=== PATIENT | female | born 1955 | race Caucasian/White ===

== ENCOUNTER 2018-08-27 09:51 | Outpatient (CLI) | payer BC, SELFPAY | END 2018-08-27 10:11 | PROVIDERS: PCP Family Medicine; Visit Provider Internal Medicine Cardiovascular Disease | DX: I48.0 Paroxysmal atrial fibrillation (principal); R00.1 Bradycardia, unspecified | CPT/HCPCS: 93005; 93010 ==

== ENCOUNTER 2018-08-27 10:30 | Outpatient (CLI) | payer BC, SELFPAY ==
[2018-08-27 11:03] LABS: ALT 20 U/L (12-78); AST 19 U/L (15-37); Albumin 3.7 g/dL (3.4-5.0); Alkaline Phosphatase 85 U/L (46-116); BUN 20 mg/dL (7-18); Bilirubin, Direct 0.13 mg/dL (0.00-0.20); Bilirubin, Total 0.6 mg/dL (0.2-1.0); CREATININE 0.83 mg/dL (0.55-1.02); Calcium 8.6 mg/dL (8.5-10.1); Chloride 104 mmol/L (98-107); Glucose 93 mg/dL (70-100); Potassium 4.2 mmol/L (3.5-5.1); Sodium 140 mmol/L (136-145); Total Protein 7.1 g/dL (6.4-8.2)
== END 2018-08-27 10:50 ==
PROVIDERS: PCP Family Medicine; Visit Provider Internal Medicine Cardiovascular Disease
DX: I48.91 Unspecified atrial fibrillation (principal); I48.92 Unspecified atrial flutter
CPT/HCPCS: 36415; 80048; 80076

== ENCOUNTER 2018-11-30 10:19 | Day surgery (SDC) | payer OTHER, SELFPAY ==
--- NOTE | 2018-11-30 07:11 | W.COLOREPORT ---
Date of service: 11/30/18 Time of Service: 11:17 Colonoscopy Report Date of procedure: 11/30/18 Pre-op diagnosis general: + Cologuard Post-op diagnosis procedure note: other (Colon mass, polyp) Procedure: Colonoscopy with polypectomy and bx of the forceps as well as tattoe of mass Surgeon: Mayela Billings Anesthesia proc note operative: other (General/ ASA 2/Ignacio Correa, TOMMY) Estimated blood loss (mL): 4 Pathology: other (Ascending polyp, sigmoid colon mass bx) Complications: None Disposition: same day Indications: Mrs. Bertrand is a pleasant 62 year old female who had a positive Cologuard test and was seen in the office for a screening colonoscopy. Risks, benefits and complications have been reviewed. Complications include but are not limited to bleeding, pain, perforation, missed small lesion/polyp, sore throat, aspiration and adverse reaction to the medications. Questions were entertained and answered to their satisfaction and they wished to proceed. No guarantees were given or implied. Prep: Miralax/Dulcolax Procedure Start Time: :17 Procedure End Time: 12:10 Retraction Time: 33 minutes Findings: 2-3 cm sigmoid mass, hard and ulcerated <1 cm ascending colon polyp Procedure Description: After informed consent was obtained the patient was taken to the procedure room and placed in a left decubitous position. Monitors were applied and a time out was done. The patients name, date of , procedure, allergies to medications and metal in their body was reviewed. The patient was then sedated. Once sedated and comfortable a rectal exam was done. External exam was normal. Internal exam revealed a normal sphincter tone and no palpable masses. The scope was then introduced and retro-flexed. No internal hemorrhoids, masses or polyps were identified on retroflexion. The scope was then advanced to the cecum with some difficulty due to tortuousity. The TI and appendiceal orifice were identified. The prep was adequate. There was some liquid stool in the right colon which I was able to wash. The scope was then slowly retracted over 33 minutes back into the rectum. Polyps were removed with forceps in the ascending colon. In the sigmoid colon at about 15-18 cm there was a 2-3 cm mass, which was ulcerated and bleeding. I attempted to get a biopsy with a hot snare and the mass was to hard. I then switched to doing a biopsy with forceps. The mass was then tattooed as well. The scope was removed and the patient was woken up and taken back to Same day surgery in stable condition. The patient tolerated the procedure well and there were no immediate complications. Follow up: 2 weeks. I spoke to Dr. Interiano regarding stopping her coumadin as the mass was clearly bleeding prior to doing biopsies. He agreed that we should stop the coumadin for now. I will start her on Aspirin 325 daily to protect her. Labs have been ordered and I will get a CT scan of the chest, abdomen and pelvis done as well this week. Findings discussed at the bedside with rthe patient and her .
--- NOTE | 2018-11-30 07:13 | PDOC.DSDIS_ITS ---
Discharge Plan Disposition Patient Disposition: HOME Condition: Good Discharge Details Reason For Visit: Colonoscopy Attending Provider: Mayela Billings Primary Care Provider: Chadwick Interiano Home Meds and New Rx's Prescriptions: New aspirin 325 mg tablet 325 mg PO DAILY Qty: 30 RF: 0 Continued diphenhydramine-acetaminophen [Tylenol PM Extra Strength] 1 EACH tablet 1 ea PO HS PRNRF: 0 calcium carbonate-vitamin D3 [Calcium 600 + D(3)] 1 EACH tablet 1 ea PO DAILY RF: 0 Restasis 1 EACH dropperette 1 drp Ophthalmic BID PRNRF: 0 epinephrine [EpiPen 2-Mikal] 0.3 MG/0.3 ML auto-injector 0.3 mg IM ONCE Qty: 1 RF: 1 propafenone 150 mg tablet 75 mg PO Q8H RF: 0 Discontinued polyethylene glycol 3350 17 gram/dose powder 238 g PO ONCE Qty: 238 RF: 0 bisacodyl [Dulcolax (bisacodyl)] 5 mg tablet,delayed release (DR/EC) 5 mg PO ONCE Qty: 4 RF: 0 warfarin 4 mg tablet 4 mg PO DAILY Qty: 120 RF: 3 Discharge Instructions Instructions: Colonoscopy (GEN), Colorectal Polyps (GEN) Additional Instructions: Findings: One polyp Mass at 18 cm that is bleeding- this is almost likely to be cancer unfortunately Follow up: 2 weeks in the office Please call if you develop: fevers >101.5 Nausea or Vomiting Abdominal pain that is not transient DAY SURGERY UNIT POST COLONOSCOPY INSTRUCTIONS 1. Because there will be medication in your system for the next 24 hours, you may feel a little sleepy. Your coordination will be affected. Therefore: a. Do not drive or operate dangerous equipment for 24 hours. b. Do not drink alcohol beverages for 24 hours (not even beer). c. Plan to go home and rest for the day. 2. Generally there are no restrictions on your activity after a day or so has gone by, but you may feel a bit fatigued for a few days. 3 After you arrive home you may have a light meal and return to a normal diet as you can tolerate it without feeling sick to your stomach. 4. After surgery, you may feel pain or discomfort. This should be only transient, but if it persists please contact your doctor. 5. If there are any questions regarding the findings of your procedure, please feel free to contact your doctor. 6. If you are unable to contact your doctor with a problem, contact the hospital at [phone]. 7. Continue all your regular medications unless directed otherwise. I understand the above instructions and have no questions. Signature of Patient or Responsible Adult Escort Date/Time Name of Responsible Adult Escort Signature of Nurse Date/Time Stand Alone Forms: Gabby Felipe (DSU) Referrals: Mayela Billings MD [ [facility] STAFF PHYSICIAN] - (2 weeks) Activity:: Activity as Tolerated Diet:: As Tolerated Discharge Orders Discharge Orders: Discharge Order (Routine); Ordered 11/30/18 Ordered By: Mayela Billings DS: Diagnosis Discharge Diagnosis (1) S/P colonoscopy: (2) Mass of colon: Status: Inactive (3) Colorectal polyps:
[2018-11-30 10:35] VITALS: BP 125/1; PULSE 60; RESP 16; TEMP 36.5; O2SAT 97
[2018-11-30 11:03] LABS: INR 1.1 (0.9-1.1); Prothrombin Time 10.7 sec (9.3-11.0)
[2018-11-30] MEDS: Lactated Ringers 1,000 ML 80 ML IV (11:09)
--- NOTE | 2018-11-30 11:43 | BOWEL_PTH ---
PATIENT: Kendy Bertrand LOC: [facility] U#:[id number] AGE/SX: 62/F ROOM: RE11/30/[address]: Mayela Billings MD : [id number] BED: DIS: 11/30/2018 SPEC #: [id number] RECD: 11/30/18 12:58 STATUS: SINDY REQ #: [id number] JIGNA: 11/30/18 11:[address]: Mayela Billings DEPT: Surgical Specimen RECD BY: Carey Matos ENTERED: 11/30/18 12:59 SP TYPE: Bowel OTHR DR: Chadwick Interiano DO Tissues: 1 - BIOPSY BOWEL 2 - BIOPSY BOWEL Procedures: GROSS AND MICRO LEVEL 4 IMMUNOPEROXIDASE STAIN Comments: [id number]
[2018-11-30] MEDS: Endoscopic Tattoo 5 ML SYR IJ (12:06)
[2018-11-30 12:54] VITALS: BP 132/88; PULSE 55; RESP 16; TEMP 36.3; O2SAT 100
[2018-11-30 12:56] LABS: Absolute Basophil Count 0.03 k/cumm (0.0-0.2); Absolute Eosinophil Count 0.17 k/cumm (0.0-0.7); Absolute Lymphocyte Count 1.19 k/cumm (1.2-3.4); Absolute Monocyte Count 0.27 k/cumm (0.11-0.7); Absolute Neutrophil Count 2.92 k/cumm (1.2-6.7); Basophils % 0.7; Eosinophils % 3.7; HCT 40.8 % (36.0-46.0); HGB 13.8 g/dL (12.0-15.5); Mean Corp. HGB Concentration 33.8 g/dL (32.0-36.0); Mean Corpuscular Hemoglobin 31.8 pg (27.0-33.0); Mean Platelet Volume 9.6 fL (8.0-11.0); Monocytes % 5.9; Neutrophils % 63.7; Platelet Count 163 x1000/uL (130-400); RBC 4.34 m/cumm (4.00-5.20); RBC Distribution Width 12.2 % (11.7-14.6); White Blood Cell Count 4.58 k/cumm (4.4-10.8)
[2018-11-30 13:17] LABS: ALT 22 U/L (12-78); AST 20 U/L (15-37); Albumin 3.4 g/dL (3.4-5.0); Alkaline Phosphatase 84 U/L (46-116); Anion Gap 10.1 mmol/L (3-11); BUN 15 mg/dL (7-18); Bilirubin, Total 0.7 mg/dL (0.2-1.0); CO2 26.9 mmol/L (21.0-32.0); Calcium 8.6 mg/dL (8.5-10.1); Chloride 103 mmol/L (98-107); Glucose 79 mg/dL (70-100); Potassium 3.7 mmol/L (3.5-5.1); Sodium 140 mmol/L (136-145); Total Protein 6.7 g/dL (6.4-8.2)
[2018-12-01 10:19] LABS: CEA 1.4 ng/ml
== END 2018-11-30 13:09 | disposition home or self-care (01) ==
LOC: SUR 10:19
PROVIDERS: PCP Family Medicine; Visit Provider Surgery
PROC: 0DJD8ZZ Inspection of Lower Intestinal Tract, Via Natural or Artificial Opening Endoscopic (ICD-10-PCS; CPT 45378; principal; 2018-11-30 11:15)
DX: D12.2 Benign neoplasm of ascending colon (principal); C18.7 Malignant neoplasm of sigmoid colon; Q22.5 Ebstein's anomaly; Z79.01 Long term (current) use of anticoagulants; R19.5 Other fecal abnormalities
CPT/HCPCS: 45380; 45381; 36415; 80053; 88305; 82378; 85025; 85610; 88361

== ENCOUNTER 2018-12-04 02:34 | Outpatient (CLI) | payer OTHER, SELFPAY ==
[2018-12-04] MEDS: Omnipaque 350 MG/ML 50 ML BTL IJ (07:47)
[2018-12-04] MEDS: Omnipaque 350 MG/ML 100 ML BTL IJ (08:57)
[2018-12-04] MEDS: Breeza Beverage 473 ML BTL PO ×2 (09:07→09:09)
--- NOTE | 2018-12-04 09:10 | DI.CT_ITS ---
SYMPTOM/DIAGNOSIS: COLON MASS DETECTED ON COLONOSCOPY, MALIGNANT NEOPLASM, C81.9 CHEST/ABDOMINAL AND PELVIC CT: CT examination of the abdomen and pelvis was performed with a bolus infusion of 100 cc's of Omnipaque 350 and ingestion of dilute barium. The lungs are predominantly clear. There is a 5 mm. in diameter pleural based nodule associated with the minor fissure on the right, probably representing an intrapulmonary lymph node. No pleural effusion. No mediastinal or hilar adenopathy. Tracheobronchial tree appears intact. No evidence of pulmonary embolic disease or other vascular abnormality. No axillary or supraclavicular adenopathy. There is a subcentimeter, low attenuation right hepatic lobe lesion, probably representing a cyst. Spleen is unremarkable in appearance. Pancreas, gallbladder and bile ducts appear normal. Adrenals and kidneys are unremarkable. Abdominal aorta is of normal diameter and no major vascular abnormality is seen. No significant abdominal wall hernia is seen. No abdominal or pelvic adenopathy is seen. Patient reportedly has had colonic mass identified on colonoscopy. There is question of an area of wall thickening of the sigmoid colon, correlation regarding the site of the colonoscopically lesion is requested. Pericolonic fat shows normal attenuation. Appendix is normal. No evidence of diverticulitis or bowel obstruction. No bony lesion identified in the regions surveyed of the chest, abdomen and pelvis. [employer] structures unremarkable for age. CONCLUSION: No evidence of metastatic disease of the chest, abdomen or pelvis in a patient with reported history of colonic mass identified on colonoscopy.
== END 2018-12-04 02:54 ==
PROVIDERS: PCP Family Medicine; Visit Provider Surgery
DX: K63.89 Other specified diseases of intestine (principal)
CPT/HCPCS: 74177; 71260; J3490; Q9967

== ENCOUNTER 2019-02-04 14:20 | Outpatient (REF) | payer OTHER, SELFPAY ==
[2019-02-04 19:00] LABS: Anion Gap 10.3 mmol/L (3-11); BUN 16 mg/dL (7-18); CO2 26.7 mmol/L (21.0-32.0); CREATININE 0.79 mg/dL (0.55-1.02); Calcium 8.4 mg/dL (8.5-10.1); Chloride 102 mmol/L (98-107); Glucose 95 mg/dL (70-100); Potassium 4.2 mmol/L (3.5-5.1); Sodium 139 mmol/L (136-145)
== END 2019-02-04 14:40 ==
LOC: LBN 14:20
PROVIDERS: PCP Family Medicine; Visit Provider Family Medicine
DX: N17.9 Acute kidney failure, unspecified (principal)
CPT/HCPCS: 80048

== ENCOUNTER 2019-08-04 12:14 | Outpatient (CLI) | payer OTHER, SELFPAY ==
[2019-08-05 15:18] LABS: COVID-19 RT-PCR Result Not Detected (NotDetected)
== END 2019-08-04 12:34 ==
PROVIDERS: PCP Family Medicine; Visit Provider Nurse Practitioner
DX: J02.9 Acute pharyngitis, unspecified (principal); R51 Headache; Z20.828 Contact with and (suspected) exposure to other viral communicable diseases
CPT/HCPCS: U0003

== ENCOUNTER 2020-04-05 02:22 | Outpatient (CLI) | payer BC, SELFPAY ==
[2020-04-06 21:51] LABS: COVID-19 RT-PCR UVMMC Result Negative (Negative)
== END 2020-04-05 02:42 ==
PROVIDERS: PCP Family Medicine; Visit Provider Family Medicine
DX: Z11.59 Encounter for screening for other viral diseases (principal)
CPT/HCPCS: U0003

== ENCOUNTER 2021-01-18 11:26 | Outpatient (CLI) | payer BC, SELFPAY ==
--- NOTE | 2021-01-18 11:15 | RT.EKG_ITS ---
APPROVED REPORT Exam: Resting ECG Reason for Exam: palpatations Patient Location: O HR:54 bpm ECG Measurements Heart Rate 54 AXIS NV 130 P 76 QRSd 142 QRS 76 QT 486 T 53 QTc 459 Conclusion Sinus bradycardia...rate< 60 Right bundle branch block...QRSd>120, terminal axis(90,270)
== END 2021-01-18 11:27 | disposition home or self-care (01) ==
LOC: DI.KIM 11:28
PROVIDERS: PCP Family Medicine; Visit Provider Family Medicine
DX: R00.2 Palpitations (principal)
CPT/HCPCS: 93010

== ENCOUNTER 2021-07-27 00:02 | Outpatient (CLI) | payer BC, SELFPAY ==
--- NOTE | 2021-07-27 12:50 | DI.MAMMO_ITS ---
Exam(s) MAMMO SCREENING EXAM: MAMMO SCREENING CLINICAL HISTORY: screening,Z12.39 TECHNIQUE: Bilateral full field digital CC and MLO mammographic images were obtained with 3D tomosyn thesis and utilizing computer aided detection (CAD). COMPARISON: Available for comparison. FINDINGS: Masses/Architectural Distortion: None seen. Microcalcifications: No suspicious pleomorphic-type are seen. Skin Thickening/Nipple Retraction: None. IMPRESSION: 1. No significant interval change with no specific features of malignancy noted. 2. Unless there is more urgent need, screening mammography is recommended, as per [employer] guidelines. BI-RADS Category 1 - Negative Breast Density - Category B - Scattered areas of fibroglandular density Breast density category C or D implies that the patient has dense breast tissue. Dense breast tissue is very common and is not abnormal but dense breast tissue can make it harder to find cancer on a ma mmogram. Also, dense breast tissue may increase their breast cancer risk. This information about the result of the mammogram report was provided to the patient to raise their awareness. Use this report when you speak with the patient about their risks for breast cancer, which includes their family hist ory. At that time, you may recommend for more screening tests (Ultrasound or MRI) as they might be us eful based on their risk. A negative radiographic report should not delay biopsy if a dominant or clinically suspicious mass is present. Up to ten percent of cancers are not identified on mammography. A negative report may reinforce clinical impression. Adenosis and dense breasts may obscure an underlying neoplasm. False positive reports average 6 to 10%. Patient will receive a letter notifying them of these results.
== END 2021-07-27 00:22 ==
PROVIDERS: PCP Family Medicine; Visit Provider Family Medicine
DX: Z12.31 Encounter for screening mammogram for malignant neoplasm of breast (principal)
CPT/HCPCS: 77063; 77067

== ENCOUNTER 2021-08-21 04:55 | Outpatient (CLI) | payer BC, SELFPAY ==
[2021-08-21 12:00] LABS: Source Nasal/Nares
[2021-08-21 13:59] LABS: COVID-19 PCR Negative (Negative)
== END 2021-08-21 04:56 | disposition home or self-care (01) ==
LOC: LBO 04:57
PROVIDERS: PCP Family Medicine; Visit Provider Internal Medicine Clinical Cardiac Electrophysiology
DX: Z20.822 Contact with and (suspected) exposure to COVID-19 (principal); Z01.818 Encounter for other preprocedural examination; I47.1 Supraventricular tachycardia
CPT/HCPCS: 87635

== ENCOUNTER → 2022-01-30 19:13 | Outpatient (CLI) | payer MEDICARE, SELFPAY ==
--- NOTE | 2022-01-30 14:38 | DI.RAD_ITS ---
Exam(s) XR FOOT LT COMPLETE EXAM: XR FOOT LT COMPLETE CLINICAL HISTORY: METATARSALGIA-M77.40, PAIN-M79.673, EDEMA-R60.0. TECHNIQUE: 2D digital imaging was performed. Three views. COMPARISON: CR XR FOOT RT COMPLETE from 01/30/2022 FINDINGS: BONES: No acute fracture is present. No bony destructive lesion is seen. Tiny plantar calcaneal spur. JOINTS: No dislocation present. Mild degenerative changes at the 1st MTP joint. Mild hallux valgus. Deformity and spurring at the base of the 2nd proximal phalanx and head of the 2nd metatarsal. Mild deformity at the distal interphalangeal joint of the 2nd toe. Degenerative changes also noted tarsa l metatarsal joints, 1st through 3rd. SOFT TISSUE: Swelling adjacent to head of 5th metatarsal. No foreign body or abnormal gas collection . IMPRESSION: Degenerative changes. Mild hallux valgus. Soft tissue swelling near head of 5th metatarsal. DATA REPOSITORY: RADIATION DOSE DELIVERED:
--- NOTE | 2022-01-30 14:38 | DI.RAD_ITS ---
Exam(s) XR FOOT RT COMPLETE EXAM: XR FOOT RT COMPLETE CLINICAL HISTORY: METATARSALGIA-M77.40, PAIN-M79.673, EDEMA-R60.0. TECHNIQUE: 2D digital imaging was performed. Three views. COMPARISON: No exams were available for comparison FINDINGS: BONES: No acute fracture is present. No bony destructive lesion is seen. Prior partial resection of the 5th metatarsal head and osteotomy with [address]. Chronic appearing deformity at t he base of the distal phalanx of the 5th toe. Tiny plantar calcaneal spur. JOINTS: No dislocation present. Severe degenerative changes at the 1st MTP joint. Minimal hallux va lgus. Spurring at the 2nd metatarsophalangeal joint. Mild degenerative changes of the tarsal metatars al joints. Spurring posterior talocalcaneal joint. SOFT TISSUE: Normal. IMPRESSION: Severe degenerative changes of the 1st MTP joint. Postsurgical changes of the distal 5th metatarsal. DATA REPOSITORY: RADIATION DOSE DELIVERED:
== END ==
PROVIDERS: PCP Family Medicine; Visit Provider Podiatrist Foot & Ankle Surgery
DX: M77.41 Metatarsalgia, right foot (principal); M77.42 Metatarsalgia, left foot; M79.671 Pain in right foot; M79.672 Pain in left foot; Z98.890 Other specified postprocedural states; M19.071 Primary osteoarthritis, right ankle and foot; M19.072 Primary osteoarthritis, left ankle and foot; M79.89 Other specified soft tissue disorders; M20.12 Hallux valgus (acquired), left foot; R60.0 Localized edema
CPT/HCPCS: 73630

== ENCOUNTER 2022-06-05 04:08 | Outpatient (CLI) | payer MEDICARE, SELFPAY ==
[2022-06-05 16:19] LABS: ALT 16 U/L (14-59); AST 20 U/L (15-37); Albumin 3.8 g/dL (3.4-5.0); Alkaline Phosphatase 93 U/L (46-116); Anion Gap 10.3 mmol/L (3-11); BUN 21 mg/dL (7-18); Bilirubin, Total 0.4 mg/dL (0.2-1.0); CO2 25.7 mmol/L (21.0-32.0); CREATININE 0.7 mg/dL (0.55-1.02); Calculated LDL 114 mg/dL (<100); Chloride 102 mmol/L (98-107); Cholesterol 203 mg/dL (<200); Estimated GFR 95.92 (mL/min/1.73m2); Glucose 147 mg/dL (74-106); HDL Cholesterol 72 mg/dL (40-60); Potassium 3.7 mmol/L (3.5-5.1); Sodium 138 mmol/L (136-145); Total Protein 6.9 g/dL (6.4-8.2); Triglyceride 86 mg/dL (<150)
[2022-06-06 18:49] LABS: CEA 1.3 ng/mL (See Note)
== END 2022-06-05 04:09 | disposition home or self-care (01) ==
PROVIDERS: PCP Family Medicine; Visit Provider Family Medicine
DX: I47.1 Supraventricular tachycardia (principal); C18.7 Malignant neoplasm of sigmoid colon
CPT/HCPCS: 36415; 80053; 80061; 82378

== ENCOUNTER → 2023-02-21 00:46 | Outpatient (CLI) | payer MEDICARE, SELFPAY ==
--- NOTE | 2023-02-21 | DI.CT_ITS ---
Exam(s) CT CHEST/ABD/PEL W EXAM: CT CHEST/ABD/PEL W CLINICAL HISTORY: SIGMOID COLON CA,C18.7,SURVEILLANCE FOR RECURRENCE. TECHNIQUE: Imaging Protocol: Axial computed tomography images with coronal and sagittal reformatted images were created and reviewed CONTRAST MATERIAL: Intravenous: Omnipaque 350 Contrast volume:100 ml Oral: yes / FINDINGS: CHEST: Tracheobronchial tree: Patent where visualized. Pulmonary parenchyma: No consolidation or dominant measurable mass. Incidental calcified granuloma r ight upper lobe. Pleura: No effusion or pneumothorax. Lymph nodes: Within normal limits. Aorta: Thoracic portion non-dilated. Heart: Tricuspid valve prosthesis. The heart is dilated. Coronary artery calcifications present. No pericardial effusion. Bones: Degenerative changes and mild scoliosis.. No lytic or blastic lesions.No compression fracture s. Sternal wires. ABDOMEN and PELVIS: Liver: Normal density. No measurable mass. Gallbladder and biliary tract: No evidence of stones or wall thickening. No biliary dilatation. Pancreas: Normal density, no abnormal calcifications or inflammatory process. Spleen: Normal. Kidneys: Normal size, contour and axis. No radiodense stones or obstructive uropathy. No suspicious m asses seen. Adrenal glands: No masses seen. Aorta: Abdominal portion non-dilated. Mild atherosclerotic changes. Lymph nodes: Within normal limits. Soft tissues: Unremarkable. Bladder: Unremarkable. Bowel: Partial left colectomy. Anastomotic stenosis sigmoid region. No narrowing. No obstruction o r bowel wall thickening. Large quantity of stool from cecum through splenic flexure. No visible ma ss. Peritoneal cavity: No ascites. No focal collection or mesenteric inflammatory response. Bones: Degenerative changes lower lumbar spine. Reproductive organs: Within normal limits. IMPRESSION: No evidence of metastatic disease or other acute abnormality in the chest, abdomen or pelvis.. RADIATION DOSE DELIVERED: Total DLP DATA REPOSITORY: All CT scans at this facility are submitted to the National Radiology Data Registry (NRDR) Dose Index Registry (DIR) with the [employer] (ACR). RADIATION OPTIMIZATION: All CT scans at this facility use at least one of these dose optimization te chniques: automated exposure control; mA and/or kV adjustment per patient size (includes targeted exa ms where dose is matched to clinical indication); or iterative reconstruction.
[2023-02-21] MEDS: Barium Sulfate 2% W/V-Berry Smoothie 450 ML BTL 900 ML PO (08:46)
[2023-02-21 08:52] LABS: CREATININE 0.8 mg/dL (0.55-1.02); Estimated GFR 81.21 (mL/min/1.73m2)
[2023-02-21] MEDS: Omnipaque 350 MG/ML 500 ML BTL-Imaging package 100 ML IJ (10:49)
[2023-02-21] MEDS: Normal Saline - Diluent 50 ML VIAL IJ (10:51)
[2023-02-21 20:44] LABS: CEA 1.1 ng/mL (See Note)
== END ==
PROVIDERS: PCP Family Medicine; Visit Provider Internal Medicine Hematology & Oncology
DX: C18.7 Malignant neoplasm of sigmoid colon (principal)
CPT/HCPCS: 74177; 71260; 82378; 82565

== ENCOUNTER → 2023-07-14 14:23 | Outpatient (BNVA) | payer MEDICARE, SELFPAY | PROVIDERS: PCP Family Medicine; Referring Provider Family Medicine; Visit Provider Surgery | DX: Z12.11 Encounter for screening for malignant neoplasm of colon (principal); C18.9 Malignant neoplasm of colon, unspecified ==

== ENCOUNTER 2023-10-23 01:29 | Outpatient (CLI) | payer MEDICARE, SELFPAY ==
[2023-10-24 19:43] LABS: CEA 1.5 ng/mL (See Note)
== END 2023-10-23 01:30 | disposition home or self-care (01) ==
LOC: LBO 01:29
PROVIDERS: PCP Family Medicine; Visit Provider Internal Medicine Hematology & Oncology
DX: C18.7 Malignant neoplasm of sigmoid colon (principal)
CPT/HCPCS: 36415; 82378

== ENCOUNTER → 2023-11-28 00:12 | Outpatient (CLI) | payer MEDICARE, SELFPAY ==
--- NOTE | 2023-11-28 13:07 | DI.MAMMO_ITS ---
Exam(s) MAMMO SCREENING EXAM: MAMMO SCREENING CLINICAL HISTORY: screening, Z12.39 TECHNIQUE: Mammograms were interpreted according to the usual protocol including computer analysis w [employer] CAD system, tomosynthesis and C-view imaging. COMPARISON: 2015 and 2021 FINDINGS: The breasts are composed of scattered fibroglandular densities, Breast Density category B. No suspicious masses or suspicious microcalcifications are seen. No skin thickening or abnormal axillary lymph nodes are seen. There has been no significant change from prior exams. IMPRESSION: BI-RADS Category 1, Negative mammogram Yearly screening mammography is recommended. Breast Density - Category B, scattered fibroglandular densities. A negative radiographic report should not delay biopsy if a dominant or clinically suspicious mass is present. Up to ten percent of cancers are not identified on mammography. A negative report may reinforce clinical impression. Adenosis and dense breasts may obscure an underlying neoplasm. False positive reports average 6 to 10%. Patient will receive a letter notifying them of these results.
== END ==
PROVIDERS: PCP Family Medicine; Visit Provider Family Medicine
DX: Z12.39 Encounter for other screening for malignant neoplasm of breast (principal); Z12.31 Encounter for screening mammogram for malignant neoplasm of breast
CPT/HCPCS: 77063; 77067

== ENCOUNTER 2024-06-11 00:14 | Outpatient (CLI) | payer MEDICARE, SELFPAY ==
--- NOTE | 2024-06-11 | DI.CT_ITS ---
Exam(s) CT CHEST/ABD/PEL W EXAM: CT CHEST/ABD/PEL W CLINICAL HISTORY: Malignant neoplasm of sigmoid colon, C18.7,Stage IIA colon CA, surveillance. TECHNIQUE: Imaging Protocol: Axial computed tomography images with coronal and sagittal reformatted images were created and reviewed. Computer aided detection (CAD) was utilized. CONTRAST MATERIAL: Intravenous: Omnipaque 350 Contrast volume:75 ml Oral: yes / CT CT CHEST/ABD/PEL W from 02/21/2023 FINDINGS: CHEST: Tracheobronchial tree: Patent. Pulmonary parenchyma: No consolidation or dominant measurable mass. No suspicious pulmonary nodules. Pleura: No effusion or pneumothorax. Mediastinum: Within normal limits. Aorta: Thoracic portion non-dilated. Pulmonary arteries: No visible emboli. Heart: No pericardial effusion. Tricuspid valve prosthesis. Bones: Mild scoliosis. No lytic or blastic lesions.No compression fractures. Sternal wires. Soft tissues: Pacemaker over left pectoral muscle. ABDOMEN and PELVIS: Exam is limited by motion on the upper half of the images, through the levels of the liver and spleen . Liver: Normal density. No measurable mass. Gallbladder and biliary tract: No evidence of stones or wall thickening. No biliary dilatation. Pancreas: Normal density, no abnormal calcifications or inflammatory process. Spleen: Normal. Kidneys: Normal size, contour and axis. No radiodense stones. No obstructive uropathy. No suspicious masses seen. Adrenal glands: No masses seen. Aorta: Abdominal portion non-dilated. Lymph nodes: Within normal limits. Soft tissues: Unremarkable. Bladder: Unremarkable. Bowel: A rectosigmoid anastomosis is again noted. No evidence of stricture. No new or recurrent mas s. Increased quantity of stool noted from cecum through mid descending colon. No obstruction or bow el wall thickening. Peritoneal cavity: No ascites. No focal collection. No mesenteric inflammatory response. No free ai r. Bones: Unremarkable for age. Reproductive organs: Within normal limits. IMPRESSION: No evidence of metastatic disease in the chest, abdomen or pelvis. Increased quantity of stool. Rectosigmoid anastomosis is unremarkable. RADIATION DOSE DELIVERED: Total DLP DATA REPOSITORY: All CT scans at this facility are submitted to the National Radiology Data Registry (NRDR) Dose Index Registry (DIR) with the [employer] (ACR). RADIATION OPTIMIZATION: All CT scans at this facility use at least one of these dose optimization te chniques: automated exposure control; mA and/or kV adjustment per patient size (includes targeted exa ms where dose is matched to clinical indication); or iterative reconstruction.
[2024-06-11] MEDS: Barium Sulfate 2% W/V-Berry Smoothie 450 ML BTL PO (08:23)
[2024-06-11] MEDS: Barium Sulfate 2% W/V-Creamy Vanilla Smoothie 450 ML BTL PO (08:24)
[2024-06-11 08:50] LABS: CREATININE 0.8 mg/dL (0.55-1.02); Estimated GFR 80.71 (mL/min/1.73m2)
[2024-06-11] MEDS: Omnipaque 350 MG/ML 500 ML BTL-Imaging package 75 ML IJ (11:57)
[2024-06-11] MEDS: Normal Saline - Diluent 50 ML VIAL IJ (11:58)
== END 2024-06-11 00:34 ==
LOC: DI 00:14
PROVIDERS: PCP Family Medicine; Visit Provider Internal Medicine Hematology & Oncology
DX: C18.7 Malignant neoplasm of sigmoid colon (principal)
CPT/HCPCS: 74177; 71260; 82565

== ENCOUNTER → 2024-07-01 13:22 | Outpatient (BNVA) | payer MEDICARE, SELFPAY | PROVIDERS: PCP Family Medicine; Referring Provider Family Medicine; Visit Provider Student in an Organized Health Care Education/Training Program | DX: Z12.11 Encounter for screening for malignant neoplasm of colon (principal); Z85.038 Personal history of other malignant neoplasm of large intestine ==

== ENCOUNTER 2024-07-09 06:19 | Day surgery (SDC) | payer MEDICARE, SELFPAY ==
--- NOTE | 2024-07-08 19:14 | W.PM.DSUDISC ---
Date of service: 07/09/24 Discharge Plan Disposition Patient Disposition: Home Condition: Good Discharge Details Reason For Visit: screening colonoscopy Attending Provider: Sumanth Dejesus Primary Care Provider: Chadwick Interiano Home Meds and New Rx's Prescriptions: Continued multivitamin Tablet 1 tab PO DAILY diltiazem HCl 120 mg capsule,extended release 24hr 120 mg PO DAILY diphenhydramine-acetaminophen [Tylenol PM Extra Strength] 25-500 mg tablet 1 tab PO QHS PRN amoxicillin 500 mg capsule 500 mg PO .COMPLEX Patient Comments: only before dental procedures. Rx Instructions: 500 mg orally take 4 capsules by moth 1 hour prior to dental appointment; epinephrine [EpiPen 2-Mikal] 0.3 mg/0.3 mL auto-injector 0.3 mg IM ONCE Qty: 2 1RF Rx Instructions: DX: [facility]ERGY propafenone 225 mg capsule,extended release 12 hr 225 mg PO Q12H Held apixaban 5 mg tablet 5 mg PO BID Hold Instructions: Resume on 07/10/24. Discontinued polyethylene glycol 3350 17 gram/dose powder 238 g PO ONCE Qty: 238 0RF Rx Instructions: take per colonoscopy instructions bisacodyl [Dulcolax (bisacodyl)] 5 mg tablet,delayed release (DR/EC) 5 mg PO ONCE Qty: 4 0RF Rx Instructions: take per colonoscopy instructions Discharge Instructions Additional Instructions: Kendy is very nice meeting you today, and I hope you make a quick recovery from the colonoscopy. Your prep was excellent and I could see everything fine. I was able to visualize the connection in your colon about 20 cm up from your anus. That looks healthy and excellent. A few centimeters beyond this were 2 polyps. These were both quite small and I removed them without any issues. These will be sent off for testing, and once we know the nature of the polyps, we will be able to better inform the timing of your next colonoscopy. As we talked about beforehand, because I removed these polyps today, I prefer you to hold your Eliquis until tomorrow. You can resume it at that point just as you regularly take it. 1. If tolerated, consume a soft, low fiber diet for 1-2 days. 2[address] Do not drive, drink alcohol, operate machinery, make critical decisions, or do activities that require coordination or balance for 24 hours. 3. Because air was put into your colon during the procedure, expelling air from your rectum (passing gas or farting) is normal. 4. You may not have a bowel movement for 1-3 days because of the colonoscopy prep. This is normal. 5. Go directly to the emergency room if you notice any of the following: Develop chills (warm to touch), or if you have a thermometer and your temperature is above 101 Difficulty breathing or difficultly swallowing Persistent vomiting Severe abdominal pain, other than gas cramps Severe chest pain Black, tarry stools Any bleeding ? exceeding one tablespoon 6. Call your physician if the site where your intravenous was started becomes red, swollen, painful, and warm to touch. 7. Your physician has reviewed your pre-procedure medications. Please continue to take those medications as previously ordered. You will be given specific information/education regarding any changes to your medications before leaving. Activity:: Activity as Tolerated Diet:: As Tolerated Discharge Orders Discharge Orders: Discharge Order (Routine); Ordered 07/08/24 Ordered By: Sumanth Dejesus DS: Diagnosis Discharge Diagnosis (1) Encounter for screening colonoscopy: Status: Acute Asessment and Plan: Follow-up on polypectomy results
--- NOTE | 2024-07-08 19:16 | COLE_ITS ---
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 She needs her next surveillance colonoscopy. Prep: Miralax/Dulcolax Procedure Start Time: 07:43 Procedure End Time: 08:02 Retraction Time: 6 Findings: Healthy normal appearing colorectal anastomosis at 20 cm from the anus; 0.25 cm polyps at 25 cm from the anus x 2 Procedure Description: After the induction of monitored anesthetic care, and with the patient in left lateral decubitus position, I began by performing an external anorectal exam.? Perineum and skin were normal, as was the anal verge.? There was no evidence of external hemorrhoids.? Next, I performed a digital rectal exam.? I did not appreciate any abnormal findings.? Next, I advanced a colonoscope into the rectal vault.? I performed retroflexion.? This appeared normal.? Using insufflation, I then advanced the colonoscope beyond the rectal folds and into the sigmoid colon before advancing towards the cecum.? Around 20 cm from the anal verge was a colorectal anastomosis. It appeared widely patent and healthy. I saw no evidence of any pathology here. There was a very short segment rectal stump adjacent to this, which was irrigated clean. This was also normal- appearing. Just a few centimeters beyond the anastomosis, round 25 cm from the anus were 2 polyps. These were both flat and quite small. These were both removed with cold forceps. There was minimal bleeding..? The scope was noted to be in the cecum by identification of the ileocecal valve and appendiceal orifice.? I then began withdrawing the colonoscope using repeated irrigation as necessary for full evaluation of the colonic mucosa. ?Once the scope was withdrawn to the level of the rectum, great care was taken to examine portions of the rectal folds.? Finally, the scope was withdrawn and the patient was brought to the same-day surgery recovery unit as the anesthetic wore off. ?The findings and instructions were shared with the patient prior to discharge. [place] Bowel Prep [place] Bowel Prep Right Colon: 2 Left Colon: 3 Transverse Colon: 3 Total Score: 8
[2024-07-09 06:28] VITALS: BP 127/80; PULSE 81; RESP 18; O2SAT 98
--- NOTE | 2024-07-09 07:00 | W.ANESPRE ---
General Info Date of Service Date Performed: 07/09/24 Height: 5 ft 6 in Weight: 69.3 kg Body Mass Index (BMI): 24.6 Surgical Procedure: Operation Date: 07/09/24 07:35 Proposed Procedure Side Surgeon elif Dejesus MD Meds Allergies and Home Medications Allergies Allergy/AdvReac Type Severity Reaction Status Date / Time prochlorperazine maleate Allergy Severe TARDIVE Verified 07/09/24 06:40 (From Compazine) DYKENESIA venom-wasp Allergy Severe Anaphylaxis Verified 07/09/24 06:40 Quinidine-Quinine Analogues Allergy Unknown Rash, Fever Verified 07/09/24 06:40 (Cincho Sulfa (Sulfonamide Allergy Unknown unknown Verified 07/09/24 06:40 Antibiotics) Home Medication ?Medication ?Instructions ?Recorded apixaban 5 mg tablet 5 mg PO BID 08/30/21 amoxicillin 500 mg capsule 500 mg PO .COMPLEX 06/16/23 diphenhydramine 25 1 tab PO QHS PRN 06/16/23 mg-acetaminophen 500 mg tablet (Tylenol PM Extra Strength) multivitamin 1 tab PO DAILY 07/14/23 epinephrine 0.3 mg/0.3 mL 0.3 mg (0.3 mL) IM ONCE #2 pens 10/10/23 injection, auto-injector (EpiPen 2-Mikal) propafenone 225 mg 225 mg PO Q12H 10/20/23 capsule,extended release 12 hr diltiazem HCl 120 mg capsule,24 120 mg PO DAILY 07/01/24 hr,extended release Current Visit Medications: Current Medications Generic Name Dose Route Start Last Admin Trade Name Freq PRN Reason Stop Dose Admin Ringer's Solution 1,000 mls @ 80 mls/hr 07/09/24 06:00 IV 07/09/24 23:59 [facility] IV Miscellaneous Supplies 1 each 07/09/24 06:00 Iv Access IV 07/09/24 23:59 DIRECTED SANDRA Ondansetron HCl 4 mg 07/08/24 19:16 Ondansetron 4 Mg/2 Ml Vial IVP 08/07/24 19:15 Q4H PRN PRN Nausea / Vomiting Sodium Chloride 0 ml 07/09/24 06:00 Normal Saline Flush 10 Ml Syr IV 07/09/24 23:59 PRN PRN Sodium Chloride 0 ml 07/09/24 06:00 Normal Saline 10 Ml Vial IJ 07/09/24 23:59 DIRECTED PRN Sterile Water 0 ml 07/09/24 06:00 Water,Injection,Sterile 10 Ml Vial IJ 07/09/24 23:59 DIRECTED PRN PFSH Active Problems Active Problems: Problem Status Onset Code Encounter for screening colonoscopy Acute Z12.11 S/P cardiac pacemaker procedure Acute Z95.0 Need for antibiotic prophylaxis for surgical procedure Acute Z79.2 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 Acute Z92.29 Age-related nuclear cataract, bilateral Chronic 11/25/22 H25.13 Keratoconjunctivitis sicca, not specified as Sjogren's, bilateral Chronic 11/25/22 H16.223 Presbyopia Chronic 11/25/22 H52.4 Myopia, bilateral Chronic 11/25/22 H52.13 Regular astigmatism, bilateral Chronic 11/25/22 H52.223 Localized edema Acute R60.0 Pain, foot Acute M79.673 Metatarsalgia Acute M77.40 Atrial tachycardia Acute ~05/2021 I47.1 Diverticulosis of colon Acute K57.30 Headache Acute R51 Body aches Acute R52 Sore throat Acute J02.9 Yellow jacket sting allergy Acute Z91.030 Primary adenocarcinoma of colon Acute 01/27/19 C18.9 Need for prophylactic antibiotic Chronic 06/04/11 Z79.2 Atrial fibrillation Chronic 05/29/11 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/11 Q22.5 Heterozygous factor V Leiden mutation Chronic 11/02/07 D68.51 Loc osteoarth NOS-hand Chronic 06/04/11 M19.049 Osteopenia determined by x-ray Chronic 08/08/09 M85.80 Medical History Medical History Positive colorectal cancer screening using Cologuard test Arthritis Pulmonary emboli While not on anticoagulation SVT (supraventricular tachycardia) COVID (~01/21/23) Malignant neoplasm of sigmoid colon (01/27/19) Colorectal polyps Mass of colon Surgical History Surgical History History of permanent cardiac pacemaker placement 08/2023 Hx of tricuspid valve replacement Status post placement of implantable loop recorder (~03/13/22) Dr Schultz, [facility] S/P laparoscopic colectomy (01/27/19) w/ anast. w/ Coloproctostomy (low pelvic anast.) H/O tubal ligation Pt also had tubal reversal S/P colonoscopy (~11/30/18) Hx of heart surgery Open heart surgery x 2. Ablations x 2. 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 Subsequent tricuspid valve repair and ring insertion w/ 28mm [employer] done in 09/2012 at [facility]. Right atrial atrioplasty to reduce RA size. Previous cavotricuspid isthmus cryoablation. Recurrent atrial tachyarrhythmias. Typical flutter ablation 2007, atypical flutter ablation 2010. Bunion/Osteotomy (03/17/09) Dr Meyer, R foot: Bunionectomy and wedge osteotomy of 5th metatarsal (screws); complicated by edema, discomfort - neuropathy Tobacco Smoking/Tobacco Use Status: Never Passive smoking exposure: No Second hand exposure: No Alcohol Alcohol Intake: never Substance Use Substance use: Never Substance use type: does not use Vital Signs and Lab Results Vital Signs Most Recent Vital Signs in EMR: Most Recent Vital Signs Pulse Resp BP Pulse Ox 81 18 127/80 98 07/09/24 06:28 07/09/24 06:28 07/09/24 06:28 07/09/24 06:28 Lab Results Blood Type / Crossmatch: No Data to Display Complete Blood Count: No Data to Display Complete Metabolic Panel: Creatinine 0.8 mg/dL (0.55-1.02) 06/11/24 08:25 Est GFR (CKD-EPI 2020) 80.71 (mL/min/1.73m2) 06/11/24 08:25 Liver Function Panel: No Data to Display Coagulation Panel: No Data to Display Cardiac Panel: No Data to Display Arterial Blood Gas: No Data to Display Venous Blood Gas: No Data to Display Pancreas Panel: No Data to Display Thyroid Panel: No Data to Display Infectious Disease: No Data to Display Blood Cultures: No Data to Display Toxicology Panel: No Data to Display Imaging and Studies Imaging and Studies Study information below may be from another EMR and interpreted by another provider. Please see original notes in EMR for more complete details. EKG Summary: EKG PATIENT NAME: Kendy Bertrand UNIT #: [id number] ORDERING PROVIDER: Chadwick Interiano DO PRIMARY CARE PROVIDER: CHADWICK INTERIANO DO DATE/TIME OF SERVICE: 01/18/21 1154 : 1955 PERFORMING LOCATION: .[facility] APPROVED REPORT Exam: Resting ECG Reason for Exam: palpatations Patient Location: O HR:54 bpm ECG Measurements Heart Rate 54 AXIS KS 130 P 76 QRSd 142 QRS 76 QT 486 T53 QTc 459 Conclusion Sinus bradycardia...rate< 60 Right bundle branch block...QRSd>120, terminal axis(90,270) <Electronically signed by MARIELA MCCAULEY MD in OV> E-Sign Date: 01/18/21 E-Sign Time: 1246 Echocardiogram Summary: Patient Name: KENDY BERTRAND Unit #: [id number] Loc: Ordering Provider: Dannielle Moore M.D. Status: REG CLI Primary Care Provider: Dannielle Moore M.D. Date of Exam: 04/25/17 Sex: F : 1955 Age: 61 Exam(s) [id number] US:Echocardiogram Heart *[facility]* *[facility]* [address] [place] [address] Date of study: 04/25/2017 Transthoracic Echocardiography M-mode, complete 2D, complete spectral Doppler, and color Doppler *STUDY CONCLUSIONS* Summary: 1. Left ventricle: The cavity size was normal. Wall thickness was normal. Systolic function was normal. The estimated ejection fraction was 55-60%. Wall motion was normal; there were no regional wall motion abnormalities. 2. Right ventricle: The cavity size was dilated. Systolic function was reduced. 3. Atrial septum: History of prior ASD closure. No residual shunt noted. 4. Tricuspid valve: Prior procedures included surgical repair. A ring annulus prosthesis was present. Transvalvular velocity was within the normal range. There was no evidence for stenosis. There was mild regurgitation. *PATIENT PRESENTATION* Height: 170.2cm ((67in) ) S/D Pressure: 109 / 64 Weight: 68kg ((149.7lb) ) BSA: 1.8m^2 Test start time: 09:30 AM. Test stop time: 11:00 AM. PERFORMING Unknown ORDERING Dannielle Moore REFERRING Dannielle Moore PERFORMING [facility] TENNIS DESK TEAM MEMBER RT Matt (Eric)(CT), [facility] *PROCEDURE DATA* Procedure information: This study was interpreted by [facility]. Pertinent images and digital data are archived for permanent storage and are available for subsequent review. No prior study was available for comparison. Study status: Routine. Transthoracic echocardiography. M-mode, complete 2D, complete spectral Doppler, and color Doppler. A Transthoracic Echocardiogram was performed. Scanning was performed from the parasternal, apical, subcostal, and suprasternal notch acoustic windows. Images were obtained using an [id number] cardiac ultrasound machine. Image quality was adequate. Study completion: The patient tolerated the procedure well. There were no complications. History: PMH: Doug, hany, I48.91. *CARDIAC ANATOMY* Left ventricle: The cavity size was normal. Wall thickness was normal. Systolic function was normal. The estimated ejection fraction was 55-60%. Wall motion was normal; there were no regional wall motion abnormalities. Aortic valve: Trileaflet; normal thickness leaflets. Mobility was not restricted. Doppler: Transvalvular velocity was within the normal range. There was no stenosis. There was no significant regurgitation. VTI ratio of LVOT to aortic valve: 0.75. Valve area (VTI): 2.2cm^2. Indexed valve area (VTI): 1.2cm^2/m^2. Peak velocity ratio of LVOT to aortic valve: 0.67. Valve area (Vmax): 2cm^2. Indexed valve area (Vmax): 1.1cm^2/m^2. Mean gradient (S): 3.9mm Hg. Aorta: Aortic root: The aortic root was normal in size. Ascending aorta: The ascending aorta was normal in size. Mitral valve: Structurally normal valve. Mobility was not restricted. Doppler: Transvalvular velocity was within the normal range. There was no evidence for stenosis. There was mild regurgitation. Valve area by pressure half-time: 4.6cm^2. Indexed valve area by pressure half-time: 2.5cm^2/m^2. Peak gradient (D): 3.8mm Hg. Left atrium: The atrium was normal in size. Atrial septum: History of prior ASD closure. No residual shunt noted. Right ventricle: The cavity size was dilated. Systolic function was reduced. Pulmonic valve: Poorly visualized. Doppler: Transvalvular velocity was within the normal range. There was no evidence for stenosis. There was mild regurgitation. Tricuspid valve: Prior procedures included surgical repair. A ring annulus prosthesis was present. Doppler: Transvalvular velocity was within the normal range. There was no evidence for stenosis. There was mild regurgitation. Pulmonary artery: Poorly visualized. Pulmonary systolic pressure was within the normal range, in the range of 20mm Hg to 25mm Hg. Right atrium: The atrium was normal in size. Pericardium: There was no pericardial effusion. Systemic veins: Inferior vena cava: Well visualized. The vessel was patent and normal in size. The respirophasic diameter changes were in the normal range (greater than or equal to 50%), consistent with normal central venous pressure. Baseline ECG: Bradycardia. Measurements Left ventricle Value Reference LV ID, ED, PLAX 5.0 cm 3.5 - 6.0 LV ID, ES, PLAX 3.4 cm 2.1 - 4.0 LV PW thickness, ED, PLAX 0.8 cm --------- LV end-diastolic volume, 1-p A2C 88 ml --------- LV ejection fraction, 1-p A2C 59 % --------- LV end-diastolic volume, 1-p A4C 78 ml --------- LV ejection fraction, 1-p A4C 64 % --------- Ventricular septum Value Reference IVS thickness, ED, PLAX 0.6 cm --------- LVOT Value Reference LVOT ID, A-P 1.9 cm --------- LVOT area 2.9 cm^2 --------- LVOT peak velocity, S 0.87 m/sec --------- LVOT VTI, S 22.4 cm --------- LVOT mean gradient, S 1.4 mm Hg --------- Aortic valve Value Reference Aortic valve peak velocity, S 1.3 m/sec --------- Aortic valve mean velocity, S 0.01 m/sec --------- Aortic mean gradient, S 3.9 mm Hg --------- VTI ratio, LVOT/AV 0.75 --------- Aortic valve area, VTI 2.2 cm^2 --------- Velocity ratio, peak, LVOT/AV 0.67 --------- Aortic valve area, peak velocity 2 cm^2 --------- Aorta Value Reference Aortic root ID, ED 3.6 cm --------- Ascending aorta ID, A-P, S 2.5 cm --------- RVOT Value Reference RVOT VTI, S 18.1 cm --------- Left atrium Value Reference LA area, ES, A4C 17.9 cm^2 8.8 - 23.4 LA volume/bsa, ES, 1-p A4C 30 ml/m^2 --------- LA/aortic root ratio 0.82 --------- Mitral valve Value Reference Mitral E-wave peak velocity 0.97 m/sec --------- Mitral A-wave peak velocity 0.45 m/sec --------- Mitral deceleration time 166 ms 150 - 230 Mitral pressure half-time 48 ms --------- Mitral peak gradient, D 3.8 mm Hg --------- Mitral E/A ratio, peak 2.14 --------- Mitral valve area, PHT, DP 4.6 cm^2 --------- Pulmonary veins Value Reference Pulmonary vein peak velocity, S 0.33 m/sec ------ Anesthesia Assessment and Plan Anesthesia History Personal History: No History of Anesthesia Complications Family History: No Family History of Anesthesia Complications Exercise Tolerance Exercise Tolerance: Metabolic Equivalents>4 Pertinent Negatives Pertinent Negatives: No Symptoms of GERD and No History of CVA/TIA Cardiac & Pulmonary Exam Cardiac Exam: Normal S1/S2 Heart Sounds Pulmonary Exam: Clear Bilateral Breath Sounds Cardiac and Pulmonary Comment:: Hx of PEs while not on anticoag Implantable Cardiac Device Does patient have a Pacemaker or an ICD?: Yes Device Commodity Broker:: [employer] Reason for Placement:: afib, bradycardia Date of Last Device Interrogation:: unknown, been in since August Airway Exam Known Difficult Airway: No Mallampati Class: 1 Mouth Opening: Normal (> 3cm) Thyromental Distance: Greater than 3 cm Neck Range of Motion: Full ROM Neck Circumference: Normal Teeth Condition: Normal Dentition ASA Classification ASA Score: ASA 3 Emergency Case?: No NPO Status NPO Status: NPO Clears >2 hours, Solids >8 hours Anesthesia Plan Resuscitation Status: Full Code Anesthesia Technique: General Anesthesia Airway Planned: Natural Airway Monitors Used: Standard Monitors
[2024-07-09] MEDS: Lactated Ringers 1,000 ML 80 ML IV (07:01)
[2024-07-09 07:19] VITALS: BMI 24.6
--- NOTE | 2024-07-09 07:46 | BOWEL_PTH ---
PATIENT: Kendy Bertrand LOC: [facility] U#:[id number] AGE/SX: 68/F ROOM: RE07/09/[address]: Sumanth Dejesus MD : 1955 BED: DIS: 07/09/2024 SPEC #: [id number] RECD: 07/09/24 12:06 STATUS: SINDY REQ #: [id number] JIGNA: 07/09/24 07:[address]: Sumanth Dejesus DEPT: Surgical Specimen RECD BY: Carey Matos ENTERED: 07/09/24 12:08 SP TYPE: Bowel OTHR DR: Chadwick Interiano DO Tissues: 1 - BIOPSY BOWEL Procedures: GROSS AND MICRO LEVEL 4 Comments: [id number]
[2024-07-09 08:07] VITALS: BP 107/65; PULSE 71; RESP 18; TEMP 36.7; O2SAT 100
[2024-07-09 08:30] VITALS: BP 119/68; PULSE 74; RESP 20; TEMP 36.2; O2SAT 99
--- NOTE | 2024-07-09 08:47 | W.ANESPOSTOP ---
Postoperative Evaluation Date, Time and Location Date Performed: 07/09/24 Time Performed: 08:22 Patient Location: Day Surgery Unit Vital Signs Most Recent Imported Vital Signs: Most Recent Vital Signs Temp Pulse Resp BP Pulse Ox 36.2 C L 74 20 119/68 99 07/09/24 08:30 07/09/24 08:30 07/09/24 08:30 07/09/24 08:30 07/09/24 08:30 Assessment Mental Status: Awake (Alert & Oriented to Patient Baseline) Airway and Respiratory Function: Patent airway with normal (patient baseline) respiratory exam Cardiovascular Function: Hemodynamically Stable Hydration Status: Adequately Hydrated Nausea & Vomiting: No Nausea or Vomiting Pain: Pt. Denies Any Pain Peripheral Nerve Block: Patient did not receive a nerve block
== END 2024-07-09 08:42 | disposition home or self-care (01) ==
LOC: SUR 06:19
PROVIDERS: PCP Family Medicine; Visit Provider Surgery
PROC: 0DJD8ZZ Inspection of Lower Intestinal Tract, Via Natural or Artificial Opening Endoscopic (ICD-10-PCS; CPT 45378; principal; 2024-07-09 07:30)
DX: Z12.11 Encounter for screening for malignant neoplasm of colon (principal); D12.5 Benign neoplasm of sigmoid colon; Z85.038 Personal history of other malignant neoplasm of large intestine
CPT/HCPCS: 45380; 88305; J2704